=== PATIENT | female | born 1975 ===

== ENCOUNTER 2018-08-07 15:36 | Outpatient (REF) | payer MEDICAID, SELFPAY ==
--- NOTE | 2018-08-07 14:15 | PAPFT_PTH ---
PATIENT: Amira Ghotra LOC: [facility]#:[id number] AGE/SX: 43/F ROOM: RE08/07/[address]: Teresita Mares : 1975 BED: DIS: 08/07/2018 SPEC #: [id number] RECD: 08/09/18 12:32 STATUS: DONATO REDestin #: [id number] BUZZ: 08/07/18 14:[address]: Teresita Mares DEPT: [facility] Cytology RECD BY: Rasheeda Diaz Tissues: 1 - CX/ENDOCX FOR PAP SMEARS Procedures: PAP THIN PREP/[facility] Screening HPV DNA PROBE Comments: [id number]
[2018-08-07 21:29] LABS: Cholesterol 200 mg/dL (50-200); HDL Cholesterol 59 mg/dL (40-60); LDL CHOLESTEROL 122 mg/dL (<100); Triglyceride 90 mg/dL (30-150)
== END 2018-08-07 15:56 ==
LOC: NCHCN 15:36
PROVIDERS: PCP Registered Nurse; Visit Provider Registered Nurse
DX: L98.9 Disorder of the skin and subcutaneous tissue, unspecified (principal); Z00.00 Encounter for general adult medical examination without abnormal findings; Z12.4 Encounter for screening for malignant neoplasm of cervix; Z11.51 Encounter for screening for human papillomavirus (HPV)
CPT/HCPCS: 80061; 83721; 88142; 87624

== ENCOUNTER 2024-12-18 11:43 | Outpatient (REF) | payer BC, SELFPAY ==
--- NOTE | 2024-12-18 10:30 | PAPFT_PTH ---
PATIENT: Amira Ghotra LOC: [facility]#:[id number] AGE/SX: 49/F ROOM: RE12/18/[address]: PORTIA: 1975 BED: DIS: 12/18/2024 SPEC #: [id number] RECD: 12/18/24 18:18 STATUS: DONATO REDestin #: [id number] BUZZ: 12/18/24 10:[address]: Sari Mims DEPT: [facility] Cytology RECD BY: Rasheeda Diaz ENTERED: 12/18/24 18:18 SP TYPE: PAPFT OTHR DR: Teresita Mares Tissues: 1 - CX/ENDOCX FOR PAP SMEARS Procedures: PAP THIN PREP/[facility] Screening HPV DNA PROBE Comments: [id number] (HPV 16 & 18/45)
== END 2024-12-18 11:44 | disposition home or self-care (01) ==
LOC: NCHCN 11:43
PROVIDERS: PCP Registered Nurse; Visit Provider Family Medicine
DX: Z11.51 Encounter for screening for human papillomavirus (HPV) (principal); Z01.419 Encounter for gynecological examination (general) (routine) without abnormal findings
CPT/HCPCS: 88142; 87624